=== PATIENT | female | born 1990 | race Caucasian/White ===

== ENCOUNTER 2018-08-08 17:02 | Outpatient (CLI) | payer OTHER | END 2018-08-08 17:03 | disposition home or self-care (01) | LOC: LAB 17:02 ==

== ENCOUNTER 2018-09-05 17:21 | Outpatient (CLI) | payer OTHER | END 2018-09-05 17:22 | disposition home or self-care (01) | LOC: LAB 17:21 ==

== ENCOUNTER 2018-10-02 15:47 | Outpatient (CLI) | payer OTHER | END 2018-10-02 15:48 | disposition home or self-care (01) | LOC: LAB 15:47 ==